=== PATIENT | female | born 1950 | race Caucasian/White ===

== ENCOUNTER → 2022-04-16 | Outpatient (CLI) | payer MEDICARE, BC ==
--- NOTE | 2022-04-16 11:25 | CT ---
EXAMINATION TYPE: CT abdomen pelvis wo con DATE OF EXAM: 04/16/2022 COMPARISON: X-ray 04/06/2010 HISTORY: Benign, essential microscopic hematuria CT DLP: 196.1 mGycm Automated exposure control for dose reduction was used. TECHNIQUE: Helical acquisition of images was performed from the lung bases through the pelvis. FINDINGS: LUNG BASES: Subsegmental changes involving the lungs suggestive of atelectasis. Heart is enlarged and there is tiny pericardial effusion. LIVER/GB: Incidental note is made of cholelithiasis. PANCREAS: No significant abnormality is seen. SPLEEN: No significant abnormality is seen. ADRENALS: No significant abnormality is seen. KIDNEYS: Right kidney: There is a posterior mid pole right renal calculus measuring 7.2 mm. No overt hydroneph rosis. There is an indeterminate right renal lesion measuring 2.1 cm and 15 Hounsfield units likely r elated to a cyst. Left kidney: There is a punctate 1 mm lower pole calculus nonobstructing. ADENOPATHY: None visualized. OSSEOUS STRUCTURES: Hypertrophic and degenerative changes spine. Benign-appearing sclerotic lesion i n the left iliac bone stable from x-ray. Punctate sclerotic left sacral lesion too small to character ize but also likely benign. Paracentral to the right within the sacrum S1 level there also is an hamilton tional sclerotic lesion. Possibly bone island. Scoliosis noted. Hypertrophic changes of the pubis sym physis. Postsurgical change left hip. BOWEL: Bowel gas pattern nonspecific changes of diverticulosis. OTHER: Atherosclerotic changes aorta. Uterus is somewhat prominent and lobulated patient's age. IMPRESSION: 1. Bilateral nonobstructing renal calculi measuring approximately 7.2 mm on the right and 1 mm on the left. 2. Indeterminate but probable simple cyst right midpole kidney could be correlated with ultrasound fo r confirmation given limitation of a noncontrast exam. 3. Stable sclerotic lesions involving the pelvis most likely a benign etiology and could be evaluate with bone scan. 4. Cardiomegaly with tiny pericardial effusion. 5. Cholelithiasis. 6. The uterus is somewhat prominent lobulated for the patient's age. Recommend follow-up pelvic ultra sound
== END | disposition home or self-care (01) ==
LOC: RADCTMAIN 10:43
PROVIDERS: ATTEND Urology
DX: N20.0 Calculus of kidney (principal); I51.7 Cardiomegaly; I31.3 Pericardial effusion (noninflammatory)
CPT/HCPCS: 74176

== ENCOUNTER → 2022-04-28 | Outpatient (CLI) | payer MEDICARE, BC ==
[2022-04-28 16:17] LABS: Basophils # (A) 0.06 X 10*3/uL (0.00-0.10); Basophils % (A) 0.9 %; Eosinophils # (A) 0.14 X 10*3/uL (0.04-0.35); Eosinophils % (A) 2.1 %; HCT 42.9 % (37.2-46.3); HGB 14.4 g/dL (12.0-15.0); Immature Grans, Automated 0.4 %; Lymphocytes # (A) 1.75 X 10*3/uL (0.90-5.00); Lymphocytes % (A) 25.9 %; MCH 29.9 pg (27.0-32.0); MCHC 33.6 g/dL (32.0-37.0); MCV 89.2 fL (80.0-97.0); Mean Platelet Volume 9.2 fL (9.5-12.2); Monocytes % (A) 11.9 %; NRBC Per 100 WBC 0 /100 WBCS (0.0-0.0); Neutrophils # (A) 3.97 X 10*3/uL (1.80-7.70); Neutrophils % (A) 58.8 %; Platelet Count 302 X 10*3/uL (140-440); RBC 4.81 X 10*6/uL (4.10-5.20); RDW 12.7 % (11.5-14.5); WBC 6.75 X 10*3/uL (4.50-10.00)
[2022-04-28 16:31] LABS: African American GFR (CKD) 64.4 (60.0-200.0); Anion Gap 9.1 mmol/L (10.00-18.00); BUN/Creat Ratio 18.61 Ratio (12.00-20.00); Blood Urea Nitrogen 18.8 mg/dL (9.0-27.0); Calcium 9.8 mg/dL (8.7-10.3); Carbon Dioxide 27.9 mmol/L (20.0-27.5); Non-African American GFR(CKD) 55.6 (60.0-200.0); Potassium 4.8 mmol/L (3.5-5.5)
[2022-04-28 18:58] LABS: Appearance,Urine Cloudy (Clear); Bilirubin,Urine Negative (Negative); Blood,Urine Small (Negative); Color,Urine Yellow (Yellow); Ketones,Urine Negative (Negative); Nitrite,Urine Negative (Negative); Specific Gravity,Urine 1.016 (1.001-1.030); Urobilinogen,Urine 0.2 (0.2,1.0)
[2022-04-28 19:01] LABS: Bacteria,Urine 4+ /HPF (None Seen)
== END | disposition home or self-care (01) ==
LOC: LABPAT 08:20
PROVIDERS: ATTEND Urology
DX: Z01.812 Encounter for preprocedural laboratory examination (principal); N20.0 Calculus of kidney; R31.29 Other microscopic hematuria
CPT/HCPCS: 36415; 80048; 81001; 85025

== ENCOUNTER 2022-05-03 09:13 | Day surgery (SDC) | payer MEDICARE, BC ==
[2022-04-29 15:51] VITALS: BMI 18.6
--- NOTE | 2022-05-02 18:21 | P.GSHP ---
History of Present Illness H&P Date: 05/02/22 2 yo female with a history of stones recently passed a stone. A kub was obtained to see if she had anymore. It was indeterminate so a ct scan was done showing a 7mm medially located stone. The stone appears to be noted also on the kub. SHe comes for eswl right. - Constitutional Constitutional: Denies chills, Denies fever - EENT Eyes: denies blurred vision, denies pain Ears, nose, mouth and throat: Denies headache, Denies sore throat - Cardiovascular Cardiovascular: Denies chest pain, Denies shortness of breath - Respiratory Respiratory: Denies cough, Denies 7 - Gastrointestinal Gastrointestinal: Denies abdominal pain, Denies diarrhea, Denies nausea, Denies vomiting - Genitourinary (Female) Genitourinary: Denies dysuria, Denies hematuria - Genitourinary (Male) Genitourinary: Denies dysuria, Denies hematuria - Musculoskeletal Musculoskeletal: Denies myalgias - Integumentary Integumentary: Denies pruritus, Denies rash - Neurological Neurological: Denies numbness, Denies weakness - Psychiatric Psychiatric: Denies anxiety, Denies depression - Endocrine Endocrine: Denies fatigue, Denies weight change Past Medical History Past Medical History: Hyperlipidemia, Thyroid Disorder Additional Past Medical History / Comment(s): Kidney stones, tooth pulled 1 week ago. History of Any Multi-Drug Resistant Organisms: None Reported Past Surgical History: No Surgical Hx Reported Additional Past Surgical History / Comment(s): L leg surgery with nataliya. Eye surge ry, Rotator cuff repair, colonoscopy. Past Anesthesia/Blood Transfusion Reactions: No Reported Reaction Past Psychological History: No Psychological Hx Reported Smoking Status: Former smoker Past Alcohol Use History: None Reported Past Drug Use History: None Reported - Past Family History Mother Family Medical History: No Reported History Father Family Medical History: Cancer Medications and Allergies Home Medications Medication Instructions Recorded Confirmed Type Levothyroxine Sodium [Synthroid] 88 mcg PO DAILY 04/29/22 04/29/22 History Allergies Allergy/AdvReac Type Severity Reaction Status Date / Time codeine AdvReac Unknown Verified 04/29/22 15:37 Surgical - Exam - General well developed, well nourished, no distress - Eyes normal ocular movement, no icteric - ENT no hearing loss, no congestion - Neck no masses, trachea midline - Respiratory normal respiratory effort, clear to auscultation - Abdomen Abdomen: soft, non tender, no guarding, no rigid, no rebound - Integumentary no rash, no abnormal pigmentation - Neurologic no disoriented, no combative - Psychiatric oriented to time, oriented to person, oriented to place, speech is normal, memory intact Results - Imaging Abdominal x-ray: report reviewed, image reviewed CT scan - abdomen: report reviewed, image reviewed Assessment and Plan Assessment: Impression: right renal stone Plan: eswl right
[~2022-05-03 09:13] MED LIST: LACTATED RINGERS 1,000 ML IV SCH; LIDOCAINE 1% (10MG/ML) FOR IV START INTRADERMA PRN
--- NOTE | 2022-05-03 09:41 | XR ---
KUB HISTORY: Renal calculus, preprocedure KUB on 2 images correlated prior exam 04/06/2022, CT scan 04/16/2022 The calcification at the level of the mid pole of the right kidney seen on prior CT may be obscured b y overlying bowel gas. The previously noted punctate calcification the lower pole of the left kidney is not seen definitively. Lung bases are clear. There is a spinal curvature, degenerative disc change s in the visualized spine. Postoperative changes are noted to the proximal left femur. Sclerotic focu s again noted within the left ilium. IMPRESSION: Findings of nephrolithiasis better seen on patient's prior CT
[2022-05-03 09:49] VITALS: RESP 16; TEMP 97
[2022-05-03] MEDS ORDERED: DEXAMETHASONE SOD PHOSPHATE 4 MG/ML 1 ML VIAL IVP ONE (09:49)
[2022-05-03] MEDS ORDERED: ONDANSETRON 4 MG/2 ML VIAL IVP ONE (09:50)
[2022-05-03] MEDS ORDERED: ONDANSETRON 4 MG/2 ML VIAL ONE (09:51)
[2022-05-03] MEDS ORDERED: fentaNYL (PF) 50 MCG/ML 2 ML AMP ONE (10:10)
[2022-05-03] MEDS ORDERED: MIDAZOLAM 2 MG/2 ML VIAL ONE (10:10)
[2022-05-03] MEDS ORDERED: PROPOFOL 10 MG/ML 20 ML VIAL IV ONE (10:10)
--- NOTE | 2022-05-03 10:55 | P.OP ---
Date of Procedure: 05/03/22 Preoperative Diagnosis: Right renal calculus Postoperative Diagnosis: Same Procedure(s) Performed: Right extracorporal shockwave lithotripsy (ESWL) Anesthesia: MAC Surgeon: Dalton Lopez Estimated Blood Loss (ml): 0 IV fluids (ml): 300 Pathology: none sent Condition: stable Disposition: PACU Indications for Procedure: The patient is a 72 yo female with a history of stones who recently passed a stone. A KUB x-ray was obtained to see if she had any additional calculi. It was indeterminate, so a CT scan was done revealing a 7 mm medially located right renal calculus, which is vaguely seen on a plain radiograph. She comes for ESWL. Operative Findings: Possible fragmentation of the calculus. Description of Procedure: The patient was taken to the operating room and placed on the Dornier Compact Delta II lithotripter in the supine position. The calculus was seen on biplanar fluoroscopy. Once the patient was properly positioned and sedated, lithotripsy was performed. The energy level was gradually increased per protocol, to an energy level of 4. After 200 shocks were administered, a 2 minute pause was instituted per protocol. A total of 2500 shocks were given at a rate of 80 shocks per minute. Fluoroscopy was utilized at a minimum to ensure proper positioning and determine the treatment status. The appearance of the calculus appeared to change, suggesting fragmentation had occurred. The patient tolerated the procedure well was taken to the recovery room in stable condition. Instructions were given to strain the urine, and the patient will follow-up within one week.
[2022-05-03 10:58] VITALS: PULSE 60
[2022-05-03 11:11] VITALS: BP 119/70
== END 2022-05-03 11:49 | disposition home or self-care (01) ==
LOC: ORWHC2ENDO 09:13
PROVIDERS: ATTEND Urology
DX: N20.0 Calculus of kidney (principal); E78.5 Hyperlipidemia, unspecified; E07.9 Disorder of thyroid, unspecified; Z87.891 Personal history of nicotine dependence; Z79.890 Hormone replacement therapy; Z88.5 Allergy status to narcotic agent
CPT/HCPCS: 50590; 74018; J2250; J1100; J2405; J3010; J2704

== ENCOUNTER → 2022-05-10 | Outpatient (CLI) | payer MEDICARE, BC ==
--- NOTE | 2022-05-10 10:34 | XR ---
EXAMINATION TYPE: XR KUB DATE OF EXAM: 05/10/2022 COMPARISON: 05/03/2022 HISTORY: Postlithotripsy TECHNIQUE: One view abdominal series FINDINGS: Bowel content obscures overlying renal structures with no definite calcifications seen. Osteitis pubis exams noted with postsurgical change involving the left femur. Bilateral hip arthropat hy. Sclerotic density overlying the left iliac wing likely bone island. Hypertrophic and degenerative changes in the spine. IMPRESSION: 1. No definite calcifications identified.
== END | disposition home or self-care (01) ==
LOC: RADXRMAIN 10:17
PROVIDERS: ATTEND Urology
DX: N20.0 Calculus of kidney (principal)
CPT/HCPCS: 74018

== ENCOUNTER → 2024-06-26 | Outpatient (CLI) | payer MEDICARE, BC ==
--- NOTE | 2024-06-26 14:00 | US ---
AMINATION TYPE: US kidneys/renal and bladderx DATE OF EXAM: 06/26/2024 COMPARISON: NONE CLINICAL INDICATION: Female, 74 years old with history of N18.32 CKD STAGE 3B; TECHNIQUE: Grayscale imaging of the bilateral kidneys and urinary bladder: FINDINGS: EXAM MEASUREMENTS: Right Kidney: 9.1x5.2x4.8 cm Left Kidney: 9.7x4.6x4.3 cm Right Kidney: Hypoechoic area seen (mid): 2.6x2.0x1.7cm echogenic foci seen:0.4cm No evidence for obstructive uropathy. Left Kidney: echogenic foci seen: 0.4cm , No evidence for obstructive uropathy. mildly dilated renal pelvis visualized Bladder: wnl Bilateral Jets seen: Yes IMPRESSION: 1. No evidence for obstructive uropathy. 2. Right peripelvic renal cyst. 3. Bilateral nonobstructing renal calculi. [facility] Raven Mcnair, , 06/26/2024 1:57 PM
== END | disposition home or self-care (01) ==
LOC: RADUSWWP 12:48
PROVIDERS: ATTEND Family Medicine
DX: N18.32 Chronic kidney disease, stage 3b (principal); N28.1 Cyst of kidney, acquired; N20.0 Calculus of kidney
CPT/HCPCS: 76770